=== PATIENT | female | born 1955 | race Two or more races ===

== ENCOUNTER → 2020-11-09 | Outpatient (CLI) | payer MEDICARE ==
[~2020-11-09] MED LIST: REGADENOSON 0.4 MG/5 ML SYRINGE ONE
== END | disposition home or self-care (01) ==
LOC: CFH 06:50
PROVIDERS: ATTEND Family Medicine
DX: I08.8 Other rheumatic multiple valve diseases (principal); I25.9 Chronic ischemic heart disease, unspecified; R94.31 Abnormal electrocardiogram [ECG] [EKG]
CPT/HCPCS: 78452; 93017; 93306; A9502; J2785

== ENCOUNTER 2021-03-07 09:34 | Day surgery (SDC) | payer MEDICARE ==
[~2021-03-07] VITALS: Ht 154.9 cm; Wt 47.3 kg
[2021-03-07] MEDS ORDERED: LEVO50TA5 PO (10:20)
[2021-03-07] MEDS ORDERED: ASPI81TA45 PO (10:20)
[2021-03-07] MEDS ORDERED: METO25TA91 PO (10:20)
[2021-03-07] MEDS ORDERED: AMLO2.5T5 PO (10:20)
[2021-03-07] MEDS ORDERED: ROSU10TA2 PO (10:20)
[2021-03-07] MEDS ORDERED: METF500T17 PO (10:20)
[2021-03-07] MEDS ORDERED: LOSA25TA25 PO (10:20)
[2021-03-07 10:22] VITALS: BP 169/90
[2021-03-07] MEDS ORDERED: ASPIRIN 325 MG TABLET PO ONE (10:30)
[2021-03-07 10:33] LABS: BASOPHILS % (AUTO) 1 % (0-1); EOSINOPHILS % (AUTO) 2 % (1-7); LYMPHOCYTES % (AUTO) 23 % (22-44); MEAN CORPUSCULAR HEMOGLOBIN 28.7 pg (27.0-34.8); MEAN CORPUSCULAR HGB CONC 33.4 g/dL (32.4-35.8); MEAN PLATELET VOLUME 9.7 fL (7.4-10.4); MONOCYTES % (AUTO) 6 % (2-9); NEUTROPHILS % (AUTO) 68 % (42-75); PLATELET COUNT 226 x10^3/uL (130-400); RED BLOOD COUNT 4.39 x10^6/uL (3.82-5.3); RED CELL DISTRIBUTION WIDTH 14.6 % (9.6-15.2)
[2021-03-07 10:42] LABS: PROTHROMBIN TIME 10.7 Seconds (9.6-11.5)
[2021-03-07 10:44] LABS: ANION GAP 4 mmol/L (5-15); CALCIUM 8.9 mg/dL (8.5-10.1); CHLORIDE 105 mmol/L (98-107)
[2021-03-07 10:45] LABS: CREATININE 0.48 mg/dL (0.55-1.02)
[2021-03-07] MEDS ORDERED: MIDAZOLAM 1 MG/ML, 2ML ONE (12:22)
[2021-03-07] MEDS ORDERED: LIDOCAINE 1%, 20ML ONE (12:23)
[2021-03-07] MEDS ORDERED: FENTANYL PF 100 MCG/2ML ONE (12:23)
== END 2021-03-07 16:27 | disposition home or self-care (01) ==
LOC: CACL 09:34
PROVIDERS: ATTEND Internal Medicine Cardiovascular Disease
DX: R94.39 Abnormal result of other cardiovascular function study (principal); I35.1 Nonrheumatic aortic (valve) insufficiency; I45.19 Other right bundle-branch block; I10 Essential (primary) hypertension; E11.9 Type 2 diabetes mellitus without complications; E03.9 Hypothyroidism, unspecified; Z79.01 Long term (current) use of anticoagulants; Z79.82 Long term (current) use of aspirin; Z79.84 Long term (current) use of oral hypoglycemic drugs; Z79.890 Hormone replacement therapy; Z79.899 Other long term (current) drug therapy; Z88.5 Allergy status to narcotic agent
CPT/HCPCS: 36415; 80048; 85025; 85610; 93458; 99156; C1760; C1769; C1894; J2250; J3010; Q9967; 99157